=== PATIENT | male | born 1965 | race Caucasian/White ===

== ENCOUNTER 2017-09-28 03:49 | Observation (INO) | payer BC ==
[2017-09-28] MEDS ORDERED: Aspirin 81 MG Tab.Chew PO ONE (03:54)
[2017-09-28] MEDS: Nitroglycerin 0.4 MG Tab.SL SL ONE ×3 (04:00→04:14)
--- NOTE | 2017-09-28 04:07 | EDM.PDOC ---
ED HPI GENERAL MEDICAL PROBLEM - General Chief Complaint: Chest Pain Stated Complaint: CHEST PAIN Time Seen by Provider: 09/28/17 05:02 - History of Present Illness INITIAL COMMENTS - FREE TEXT/NARRATIVE: HISTORY AND PHYSICAL: History of present illness: Patient 52-year-old white male with history of OR in 2014 sensory concern of midsternal chest pain that woke him sleep with shortness of breath he denies diaphoresis or palpitations described as somewhat sharp. This does not feel like his prior OR Review of systems: As per history of present illness and below otherwise all systems reviewed and negative. Past medical history: As per history of present illness and as reviewed below otherwise noncontributory. Surgical history: As per history of present illness and as reviewed below otherwise noncontributory. Social history: No reported history of drug or alcohol abuse. Family history: As per history of present illness and as reviewed below otherwise noncontributory. Physical exam: HEENT: Atraumatic, normocephalic, pupils reactive, negative for conjunctival pallor or scleral icterus, mucous membranes moist, throat clear, neck supple, nontender, trachea midline. Lungs: Clear to auscultation, breath sounds equal bilaterally, chest nontender. Heart: S1S2, regular, negative for clicks, rubs, or JVD. Abdomen: Soft, nondistended, nontender. Negative for masses or hepatosplenomegaly. Negative for costovertebral tenderness. Pelvis: Stable nontender. Genitourinary: Deferred. Rectal: Deferred. Extremities: Atraumatic, negative for cords or calf pain. Neurovascular unremarkable. Neuro: Awake, alert, oriented. Cranial nerves II through XII unremarkable. Cerebellum unremarkable. Motor and sensory unremarkable throughout. Exam nonfocal. Diagnostics: CBC CMP PT/INR troponin d-dimer chest x-ray EKG Therapeutics: IV O2 monitor aspirin 324 mg nitroglycerin Impression: #1 chest pain #2 history of coronary artery disease Definitive disposition and diagnosis as appropriate pending reevaluation and review of above. chest Pain Score (Numeric/FACES): 9 - Related Data Allergies Allergy/AdvReac Type Severity Reaction Status Date / Time No Known Allergies Allergy Verified 09/28/17 03:55 Past Medical History HEENT History: Reports: None Cardiovascular History: Reports: OR Respiratory History: Reports: None Gastrointestinal History: Reports: None Genitourinary History: Reports: None Neurological History: Reports: None Psychiatric History: Reports: None Endocrine/Metabolic History: Reports: None Dermatologic History: Reports: None - Infectious Disease History Infectious Disease History: Reports: Chicken Pox, Mumps - Past Surgical History Musculoskeletal Surgical History: Reports: Shoulder Surgery, Other (See Below) Other Musculoskeletal Surgeries/Procedures:: left arm surgery Social & Family History - Family History Family Medical History: Noncontributory - Tobacco Use Smoking Status *Q: Current Every Day Smoker Years of Tobacco use: 35 Packs/Tins Daily: 1 - Recreational Drug Use Recreational Drug Use: No ED ROS GENERAL - Review of Systems Review Of Systems: ROS reveals no pertinent complaints other than HPI. ED EXAM, GENERAL - Physical Exam Exam: See Below (See dictation) Course - Vital Signs Last Recorded V/S: Last Vital Signs Temp 36.4 C 09/28/17 03:55 Pulse 66 09/28/17 05:00 Resp 18 09/28/17 05:00 BP 103/63 09/28/17 05:00 Pulse Ox 98 09/28/17 03:55 - Orders/Labs/Meds Orders: Active Orders 24 hr Category Date Time Status EKG Documentation Completion [RC] STAT Care 09/28/17 03:54 Active Chest 1V Frontal [CR] Stat Exams 09/28/17 03:54 Taken DRUG SCREEN, URINE [URCHEM] Stat Lab 09/28/17 04:59 Ordered Labs: Laboratory Tests 09/28/17 09/28/17 09/28/17 Range/Units 03:54 03:54 03:54 WBC 9.51 (4.0-11.0) K/uL RBC 3.76 L (4.50-5.90) M/uL Hgb 12.4 L (13.0-17.0) g/dL Hct 35.5 L (38.0-50.0) % MCV 94.4 (80.0-98.0) fL MCH 33.0 H (27.0-32.0) pg MCHC 34.9 (31.0-37.0) g/dL RDW Std Deviation 42.8 (28.0-62.0) fl RDW Coeff of [place] 13 (11.0-15.0) % Plt Count 207 (150-400) K/uL MPV 11.10 (7.40-12.00) fL Neut % (Auto) 65.7 (48.0-80.0) % Lymph % (Auto) 25.0 (16.0-40.0) % [place] % (Auto) 6.3 (0.0-15.0) % Eos % (Auto) 2.4 (0.0-7.0) % Baso % (Auto) 0.6 (0.0-1.5) % Neut # (Auto) 6.2 H (1.4-5.7) K/uL Lymph # (Auto) 2.4 (0.6-2.4) K/uL [place] # (Auto) 0.6 (0.0-0.8) K/uL Eos # (Auto) 0.2 (0.0-0.7) K/uL Baso # (Auto) 0.1 (0.0-0.1) K/uL Nucleated RBC % 0.0 /100WBC Nucleated RBCs # 0 K/uL INR 0.97 D-Dimer, Quantitative (0.0-0.52) mg/LFEU Sodium 136 (136-146) mmol/L Potassium 4.2 (3.5-5.1) mmol/L Chloride 103 (98-110) mmol/L Carbon Dioxide 24 (21-31) mmol/L BUN 31 H (6.0-23.0) mg/dL Creatinine 1.2 (0.6-1.5) mg/dL Est Cr Clr Drug Dosing 72.66 mL/min Estimated GFR (MDRD) > 60.0 ml/min Glucose 97 (60-110) mg/dL Calcium 9.5 (8.8-10.8) mg/dL Total Bilirubin 0.6 (0.1-1.5) mg/dL AST 34 (5-40) IU/L ALT 43 (8-54) IU/L Alkaline Phosphatase 73 (40-150) Troponin I < 0.10 (0.0-0.29) NG/ML Total Protein 7.1 (6.0-8.0) g/dL Albumin 4.5 (3.5-5.0) g/dL Globulin 2.6 (2.0-3.5) g/dL Albumin/Globulin Ratio 1.7 (1.3-2.8) 01/23/18 Range/Units 03:54 WBC (4.0-11.0) K/uL RBC (4.50-5.90) M/uL Hgb (13.0-17.0) g/dL Hct (38.0-50.0) % MCV (80.0-98.0) fL MCH (27.0-32.0) pg MCHC (31.0-37.0) g/dL RDW Std Deviation (28.0-62.0) fl RDW Coeff of [place] (11.0-15.0) % Plt Count (150-400) K/uL MPV (7.40-12.00) fL Neut % (Auto) (48.0-80.0) % Lymph % (Auto) (16.0-40.0) % [place] % (Auto) (0.0-15.0) % Eos % (Auto) (0.0-7.0) % Baso % (Auto) (0.0-1.5) % Neut # (Auto) (1.4-5.7) K/uL Lymph # (Auto) (0.6-2.4) K/uL [place] # (Auto) (0.0-0.8) K/uL Eos # (Auto) (0.0-0.7) K/uL Baso # (Auto) (0.0-0.1) K/uL Nucleated RBC % /100WBC Nucleated RBCs # K/uL INR D-Dimer, Quantitative 0.48 (0.0-0.52) mg/LFEU Sodium (136-146) mmol/L Potassium (3.5-5.1) mmol/L Chloride (98-110) mmol/L Carbon Dioxide (21-31) mmol/L BUN (6.0-23.0) mg/dL Creatinine (0.6-1.5) mg/dL Est Cr Clr Drug Dosing mL/min Estimated GFR (MDRD) ml/min Glucose (60-110) mg/dL Calcium (8.8-10.8) mg/dL Total Bilirubin (0.1-1.5) mg/dL AST (5-40) IU/L ALT (8-54) IU/L Alkaline Phosphatase (40-150) Troponin I (0.0-0.29) NG/ML Total Protein (6.0-8.0) g/dL Albumin (3.5-5.0) g/dL Globulin (2.0-3.5) g/dL Albumin/Globulin Ratio (1.3-2.8) Meds: Medications Discontinued Medications Generic Name Dose Route Start Last Admin Trade Name Freq PRN Reason Stop Dose Admin Aspirin 324 mg 09/28/17 03:54 09/28/17 03:59 Aspirin PO 09/28/17 03:55 324 mg ONETIME ONE Administration Morphine Sulfate 2 mg 09/28/17 04:09 09/28/17 04:22 Morphine IVPUSH 09/28/17 04:10 2 mg ONETIME ONE Administration Nitroglycerin 0.4 mg 09/28/17 03:54 09/28/17 04:14 Nitrostat SL 09/28/17 03:55 0.4 mg ONETIME ONE Administration Ondansetron HCl 4 mg 09/28/17 04:09 09/28/17 04:19 Zofran IVPUSH 09/28/17 04:10 4 mg ONETIME ONE Administration Departure - Departure Time of Disposition: 05:02 Disposition: Refer to Observation Condition: Good Clinical Impression: Chest pain - Discharge Information Forms: ED Department Discharge - My Orders Last 24 Hours: My Active Orders 09/28/17 03:54 EKG Documentation Completion [RC] STAT Chest 1V Frontal [CR] Stat 09/28/17 04:59 DRUG SCREEN, URINE [URCHEM] Stat - Assessment/Plan Last 24 Hours: My Active Orders 09/28/17 03:54 EKG Documentation Completion [RC] STAT Chest 1V Frontal [CR] Stat 09/28/17 04:59 DRUG SCREEN, URINE [URCHEM] Stat
[2017-09-28] MEDS ORDERED: Morphine 2 MG/ML Syringe IVPUSH ONE (04:09)
[2017-09-28] MEDS ORDERED: Ondansetron 4 MG/2 ML SDV IVPUSH ONE (04:09)
[2017-09-28 04:18] LABS: CHLORIDE,CL 103 mmol/L (98-110); SODIUM,NA 136 mmol/L (136-146)
[2017-09-28] MEDS ORDERED: Acetaminophen 325 MG Tab PO PRN (08:12)
[2017-09-28] MEDS ORDERED: Alum Hydrox/Mag Hydrox/Simeth 15 ML, Lidocaine 2% 5 ML PO ONE ×2 (08:48)
--- NOTE | 2017-09-28 08:48 | PCM.HP ---
H&P History of Present Illness - General Date of Service: 09/28/17 Admit Problem/Dx: Admission Diagnosis/Problem Admission Diagnosis/Problem Chest pain Source of Information: Patient History Limitations: Reports: No Limitations - History of Present Illness Initial Comments - Free Text/Narative: This 52 year old male with HTN, CAD, CO with stenting in 2014, and tobacco abuse presented to the ED this morning with concerns of midsternal chest pain that woke him from sleep around 0230 am. He reports he felt a little short of breath but nothing major, he denies radiation of the pain to neck or left arm. He denies N/V. He describes the pain then as sharp in centrally located, like a stabbing feeling. Nothing made it worse or better. He reports this does not feel like his CO pain and pressure. He ate supper last night around 8-830 and then laid down for bed. He does have a history of GERD in which he takes Protonix for daily, but has not been taking it lately. He also has been taking Meloxicam daily for R shoulder pain as well as Tylenol. He continues to smoke at least a pack a day for 40+ years. He has tried quitting, but has had no success. He denies alcohol or recreational drug use. In the ED, BUN 31, Cr 1.2, all other labwork WNL. troponin negative. EKG SR 80s , with no ischemic changes. he was given Nitro SL, ASA and Morphine in the ED. He was admitted for chest pain R/O ACS. chest Pain Score (Numeric/FACES): 1 - Related Data Allergies/Adverse Reactions: Allergies Allergy/AdvReac Type Severity Reaction Status Date / Time No Known Allergies Allergy Verified 09/28/17 03:55 Home Medications: Home Meds Lisinopril 40 mg PO DAILY 09/28/17 [History] Lovastatin 20 mg PO DAILY 09/28/17 [History] Metoprolol Succinate [Toprol XL 100mg] 100 mg PO DAILY 09/28/17 [History] Pantoprazole Sodium [Protonix] 40 mg PO DAILY #30 tablet. 09/28/17 [Rx] Past Medical History HEENT History: Reports: None Cardiovascular History: Reports: CAD, High Cholesterol, Hypertension, CO, Stents. Denies: Afib, Blood Clots/VTE/DVT Other Cardiovascular History: CO 2014, with 2 stents Respiratory History: Reports: None. Denies: Asthma, COPD, PE Gastrointestinal History: Reports: GERD. Denies: GI Bleed Genitourinary History: Reports: None. Denies: Acute Renal Failure, Chronic Renal Insuffiency Musculoskeletal History: Reports: Other (See Below) (injury to R shoulder, takes Meloxicam daily) Neurological History: Reports: None. Denies: CVA, TIA Psychiatric History: Reports: None. Denies: Anxiety, Depression Endocrine/Metabolic History: Reports: None. Denies: Diabetes, Type II, Hypothyroidism Hematologic History: Reports: None Immunologic History: Reports: None Oncologic (Cancer) History: Reports: None Dermatologic History: Reports: None - Infectious Disease History Infectious Disease History: Reports: Chicken Pox, Measles - Past Surgical History Head Surgeries/Procedures: Reports: None Musculoskeletal Surgical History: Reports: Shoulder Surgery, Other (See Below) Other Musculoskeletal Surgeries/Procedures:: left arm surgery Social & Family History - Family History Family Medical History: Noncontributory - Tobacco Use Smoking Status *Q: Current Every Day Smoker Years of Tobacco use: 39 Packs/Tins Daily: 1 Used Tobacco, but Quit: No Second Hand Smoke Exposure: Yes - Caffeine Use Caffeine Use: Reports: Coffee - Alcohol Use Alcohol Use History: No - Recreational Drug Use Recreational Drug Use: No - Living Situation & Occupation Living situation: Reports: Occupation: Employed (Lives in [place] with , 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 Denies: Fever, Chills, Malaise, Weakness HEENT: Reports: Sinus Congestion. Denies: Headaches, Hearing Changes, Sore Throat, Vertigo Pulmonary: Reports: No Symptoms. Denies: Shortness of Breath, Cough, Sputum Cardiovascular: Reports: Chest Pain. Denies: Palpitations, Edema, Lightheadedness Gastrointestinal: Reports: No Symptoms, Flatus. Denies: Abdominal Pain, Black Stool, Bloody Stool, Decreased Appetite, Nausea, Vomiting Genitourinary: Reports: No Symptoms. Denies: Dysuria, Frequency, Burning Musculoskeletal: Reports: No Symptoms. Denies: Neck Pain Neurological: Reports: No Symptoms. Denies: Confusion Hematologic/Lymphatic: Reports: No Symptoms. Denies: Anemia Immunologic: Reports: No Symptoms Exam - Exam Exam: See Below - Vital Signs Vital Signs: Last Vital Signs Temp 97.6 F 09/28/17 06:23 Pulse 64 09/28/17 06:23 Resp 18 09/28/17 06:23 BP 131/97 H 09/28/17 06:23 Pulse Ox 97 09/28/17 06:23 Weight: 77.111 kg - Exam General: Alert, Oriented, Cooperative HEENT: Conjunctiva Clear, Hearing Intact, Mucosa Moist & [place], Nares Patent ( some congestion heard, no sinus pain), Posterior Pharynx Clear, Pupils Reactive Neck: Supple, Trachea Midline, 2 Lungs: Clear to Auscultation, Normal Respiratory Effort, Wheezing (scattered throughout, clears with cough) Cardiovascular: Regular Rate, Regular Rhythm, Normal S1, Normal S2. No: Systolic Murmur Back Exam: Normal Inspection, Full Range of Motion, NT Extremities: Normal Inspection, Normal Range of Motion, Non-Tender, No Pedal Edema, Normal Capillary Refill Neurological: Cranial Nerves Intact Neuro Extensive - Mental Status: Alert, Oriented x3, Normal Mood/Affect, Normal Cognition Neuro Extensive - Motor, Sensory, Reflexes: CN II-XII Intact, Normal Gait, Normal Reflexes Psychiatric: Alert, Normal Affect, Normal Mood - Patient Data Result Diagrams: 09/28/17 03:54 09/28/17 03:54 EKG INTERPRETATION EKG Date: 09/28/17 Rhythm: NSR Rate (Beats/Min): 82 [place]: Normal P-Wave: Present QRS: Normal ST-T: Normal QT: Normal *Q Meaningful Use (ADM) - VTE *Q VTE Criteria *Q: - Stroke *Q Stroke Criteria *Q: - AMI *Q AMI Criteria *Q: - Problem List (1) Chest pain SNOMED Code(s): 68084797 ICD Code: R07.9 - CHEST PAIN, UNSPECIFIED Status: Acute Current Visit: Yes Qualifiers: Chest pain type: unspecified Qualified Code(s): R07.9 - Chest pain, unspecified (2) HTN (hypertension) SNOMED Code(s): 69766043 ICD Code: I10 - ESSENTIAL (PRIMARY) HYPERTENSION Status: Chronic Current Visit: Yes Qualifiers: Hypertension type: essential hypertension Qualified Code(s): I10 - Essential (primary) hypertension (3) CAD (coronary artery disease) SNOMED Code(s): 31621473 ICD Code: I25.10 - ATHSCL HEART DISEASE OF [place] CORONARY ARTERY W/O ANG PCTRS Status: Chronic Current Visit: Yes Qualifiers: Coronary Disease-Associated Artery/Lesion type: [place] artery [place] vs. transplanted heart: [place] heart Associated angina: without angina Qualified Code(s): I25.10 - Atherosclerotic heart disease of [place] coronary artery without angina pectoris (4) Hx of myocardial infarction SNOMED Code(s): 350092154 ICD Code: I25.2 - OLD MYOCARDIAL INFARCTION Status: Chronic Current Visit : Yes (5) Dyslipidemia SNOMED Code(s): 238790644 ICD Code: E78.5 - HYPERLIPIDEMIA, UNSPECIFIED Status: Chronic Current Visit: Yes (6) GERD (gastroesophageal reflux disease) SNOMED Code(s): 035831830 ICD Code: K21.9 - GASTRO-ESOPHAGEAL REFLUX DISEASE WITHOUT ESOPHAGITIS Status: Chronic Current Visit: Yes Qualifiers: Esophagitis presence: esophagitis presence not specified Qualified Code(s) : K21.9 - Gastro-esophageal reflux disease without esophagitis Problem List Initiated/Reviewed/Updated: Yes Orders Last 24hrs: Active Orders 24 hr Category Date Time Status Intake and Output [RC] QSHIFT Care 09/28/17 08:13 Ordered Oxygen Therapy [RC] PRN Care 09/28/17 08:13 Ordered Telemetry Monitoring [Cardiac Monitoring] [RC] . Care 09/28/17 08:15 Ordered DIRECTED Up ad Alexandra [RC] ASDIRECTED Care 09/28/17 08:12 Ordered VTE/DVT Education [RC] PER UNIT ROUTINE Care 09/28/17 08:13 Ordered Vital Signs [RC] Q4H Care 09/28/17 08:13 Ordered Heart Healthy Diet [DIET] Diet 09/28/17 Breakfast Active GLYCOSYLATED HEMOGLOBIN,HGBA1C [CHEM] Routine Lab 09/28/17 08:10 Ordered TROPONIN I [CHEM] Q6H Lab 09/28/17 09:54 Ordered TROPONIN I [CHEM] Q6H Lab 09/28/17 15:54 Ordered Acetaminophen [Tylenol] Med 09/28/17 08:12 Ordered 650 mg PO Q4H PRN Enoxaparin [Lovenox] Med 09/28/17 09:00 Ordered 40 mg SUBCUT DAILY Resuscitation Status Routine Resus Stat 09/28/17 08:12 Ordered Medication Orders Acetaminophen (Tylenol) 650 mg PO Q4H PRN PRN Reason: Pain (Mild 1-3) Enoxaparin Sodium (Lovenox) 40 mg SUBCUT DAILY [facility] Assessment/Plan Comment:: This 52 year old male admitted with chest pain R/O ACS 1. Chest pain: due to CAD and previous CO, monitor on telemetry, trend troponins. Will check Lipid and A1c. Lipid panel reveals LDL 125 and HDL 40, Triglycerides 206 and total chol 206. A1c 6.0. Did give patient GI cocktail and protonix this morning, dull pain continued. after this regimen, no further pain complaints. 2. HTN: Continue home medications of Metoprolol and Lisinopril 3. CAD: Continue ASA. 4. GERD: Continue Protonix VTE prophylaxis: Lovenox Discharge Plan: Patient very eager to be discharged this afternoon. Troponins all negative. He was encouraged to follow up with his Cloth Designer regarding stress test as outpatient. Due to him being here in [place], he was offered to have appointments arranged with out providers here, he declines and would like to arrange follow up with his own provider, Dr Ford, in [place]. he was also encouraged no strenuous activity until he had a stress test and he reported he will limit himself but is going to continue working on the [employer]. He was educated on the dangers of this, especially if he has further blockage that needs attention. he continues to verbalize understanding but he was going to still work. He was educated to monitor his diet due to cholesterol levels and A1c, which is 6.0. He will be discharged home today. Chest pain maybe due to GERD but due to history we continue to recommend follow up with outpatient stress test. He is to return to ED or clinic if concerns should arise.
[2017-09-28] MEDS ORDERED: Metoprolol Succinate 100 MG Tab.ER PO SCH (09:00)
[2017-09-28] MEDS ORDERED: Pantoprazole 40 MG Vial IVPUSH SCH (09:00)
[2017-09-28] MEDS ORDERED: Lisinopril 10 MG Tab PO SCH (09:00)
[2017-09-28] MEDS ORDERED: Enoxaparin 40 MG/0.4 ML Syringe SUBCUT SCH (09:00)
--- NOTE | 2017-09-28 15:47 | CR ---
EXAM DATE: 09/28/17 PATIENT'S AGE: 52 Patient: LENORE DILLARD Facility: [place], [place] Site . Site : [id number] Study: XRay Chest [id number]/23/2018 4:16:28 AM Ordering Physician: Doctor Holman Final Report: INDICATION: Chest pain for 1 hour TECHNIQUE: Chest radiograph 1 view COMPARISON: 05/02/2011 FINDINGS: Mediastinum: The heart silhouette is normal in size and morphology. The mediastinum is normal in appearance. Lungs: Both lungs are unremarkable in appearance. No sign of pleural effusion seen. No pneumothorax is identified. Bones and soft tissue: Unremarkable for age. IMPRESSION: 1. No acute cardiopulmonary disease is seen. Dictated by: Kenn Singleton MD @ 09/28/2017 04:17:48 (Electronic Signature) Report Signed by Proxy. FREDERICK
== END 2017-09-28 17:45 | disposition home or self-care (01) ==
LOC: MW.ED 03:49 → MW.MS 05:04
PROVIDERS: ADMIT Internal Medicine; ATTEND Internal Medicine
DX: R07.9 Chest pain, unspecified (principal); I10 Essential (primary) hypertension; I25.10 Atherosclerotic heart disease of native coronary artery without angina pectoris; I25.2 Old myocardial infarction; K21.9 Gastro-esophageal reflux disease without esophagitis; F17.210 Nicotine dependence, cigarettes, uncomplicated; Z79.899 Other long term (current) drug therapy; E78.00 Pure hypercholesterolemia, unspecified; Z95.5 Presence of coronary angioplasty implant and graft
CPT/HCPCS: 36415; 71045; 80053; 80061; 80305; 83036; 84484; 85025; 85379; 85610; 93005; 96374; 96375; 99285; A9270; C9113; J1650; J2270; J2405; 96372; G0378

== ENCOUNTER 2017-10-30 17:31 | Emergency (ER) | payer BC ==
[2017-10-30] MEDS ORDERED: Sodium Chloride 0.9% 10 ML Syringe FLUSH PRN (18:03)
[2017-10-30] MEDS ORDERED: Sodium Chloride 0.9% 2.5 ML Syringe FLUSH PRN (18:03)
--- NOTE | 2017-10-30 18:03 | EDM.PDOC ---
ED HPI GENERAL MEDICAL PROBLEM - General Chief Complaint: Abdominal Pain Stated Complaint: CRAMPS Time Seen by Provider: 10/30/17 17:57 Source of Information: Reports: Patient History Limitations: Reports: No Limitations - History of Present Illness INITIAL COMMENTS - FREE TEXT/NARRATIVE: HISTORY AND PHYSICAL: [] 52-year-old male presenting with lower abdominal pain History of Present Illness: []Patient states that he has not had a bowel movement in more than a week Lives in [facility] just arrived back here to work Review of Systems: As per history of present illness and below otherwise all systems reviewed and negative. Past medical history: As per history of present illness and as reviewed below otherwise noncontributory. Surgical history: As per history of present illness and as reviewed below otherwise noncontributory. Social history: No reported history of drug or alcohol abuse. Family history: As per history of present illness and as reviewed below otherwise noncontributory. Physical exam: Alert and oriented gentleman answering questions appropriately denies any chest pain shortness breath palpitations denies any gastrointestinal other than described. Patient states that he hasn't eaten today. HEENT: Atraumatic, normocehpalic, pupils reactive, negative for conjunctival pallor or scleral icterus, mucous membranes moist, throat clear, neck supple, nontender, trachea midline. Lungs: Clear to auscultation, breath sounds equal bilaterally, chest non tender. Heart: S1S2, regular, negative for clicks, rubs, or JVD. Abdomen: Soft, nondistended, tender to light palpation no rebound and no guarding. Negative for masses or hepatossplenmegaly. Negative for costovertebral tenderness. Pelvis: Stable nontender. Genitourinary: Deferred. Rectal: Deferred Extremities: Atraumatic, negative for cords or calf pain. Neurovascular unremarkable. Neuro: Awake, alert, oriented. Cranial nerves II through XII unremarkable. Cerebellum unremarkable. Motor and sensory unremarkable throughout. Exam nonfocal. Discussed the results Diagnostics: [Abdomen pelvis Therapeutics: [IV normal saline] Reglan IV Impression: []Colicky bowel pain Plan: []Discharged to home Clear liquids Dulcolax suppository Off work note has been written Definitive disposition and diagnosis as appropriate pending reevaluation and review of above. Onset: Gradual Duration: Day(s):, Getting Worse Location: Reports: Abdomen Quality: Reports: Stabbing Severity: Moderate Improves with: Reports: None Worsens with: Reports: None abodminal Pain Score (Numeric/FACES): 7 - Related Data Allergies Allergy/AdvReac Type Severity Reaction Status Date / Time No Known Allergies Allergy Verified 10/30/17 17:48 Home Meds: Home Meds Lisinopril 40 mg PO DAILY 09/28/17 [History] Pantoprazole Sodium [Protonix] 40 mg PO DAILY #30 tablet. 09/28/17 [Rx] Aspirin 81 mg PO DAILY 10/30/17 [History] Meloxicam 15 mg PO DAILY 10/30/17 [History] Past Medical History HEENT History: Reports: None Cardiovascular History: Reports: CAD, High Cholesterol, Hypertension, MO, Stents Other Cardiovascular History: MO 2014, with 2 stents Respiratory History: Reports: None Gastrointestinal History: Reports: GERD, Other (See Below) Other Gastrointestinal History: Diverticulitis Genitourinary History: Reports: None Musculoskeletal History: Reports: Other (See Below) Neurological History: Reports: None Psychiatric History: Reports: None Endocrine/Metabolic History: Reports: None Hematologic History: Reports: None Immunologic History: Reports: None Oncologic (Cancer) History: Reports: None Dermatologic History: Reports: None - Infectious Disease History Infectious Disease History: Reports: Chicken Pox, Measles - Past Surgical History Head Surgeries/Procedures: Reports: None Musculoskeletal Surgical History: Reports: Shoulder Surgery, Other (See Below) Other Musculoskeletal Surgeries/Procedures:: left arm surgery, left leg Social & Family History - Family History Family Medical History: Noncontributory - Tobacco Use Smoking Status *Q: Current Every Day Smoker Years of Tobacco use: 40 Packs/Tins Daily: 1 Used Tobacco, but Quit: No Second Hand Smoke Exposure: Yes - Caffeine Use Caffeine Use: Reports: Soda, Tea - Recreational Drug Use Recreational Drug Use: No - Living Situation & Occupation Living situation: Reports: Occupation: Employed (Lives in [place] with , 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 ED EXAM, GI/ABD - Physical Exam Exam: See Below (See dictation) Course - Vital Signs Last Recorded V/S: Last Vital Signs Temp 36.9 C 10/30/17 17:45 Pulse 76 10/30/17 17:45 Resp 18 10/30/17 17:45 BP 145/107 H 10/30/17 17:45 Pulse Ox 97 10/30/17 17:45 - Orders/Labs/Meds Orders: Active Orders 24 hr Category Date Time Status Abdomen 2V AP Flat Upright [CR] Stat Exams 10/30/17 18:03 Taken UA W/MICROSCOPIC [URIN] Stat Lab 10/30/17 18:45 Ordered Metoclopramide [Reglan] Med 10/30/17 19:20 Once 10 mg IV ONETIME ONE Sodium Chloride 0.9% [Normal Saline] 500 ml Med 10/30/17 18:15 Active IV STAT Sodium Chloride 0.9% [Saline Flush] Med 10/30/17 18:03 Active 10 ml FLUSH ASDIRECTED PRN Sodium Chloride 0.9% [Saline Flush] Med 10/30/17 18:03 Active 2.5 ml FLUSH ASDIRECTED PRN Saline Lock Insert [OM.PC] Stat Oth 10/30/17 18:03 Ordered Medication Orders Sodium Chloride (Normal Saline) 500 mls @ 999 mls/hr IV STAT PANCHO Last Admin: 10/30/17 18:19 Dose: 999 mls/hr Sodium Chloride (Saline Flush) 10 ml FLUSH ASDIRECTED PRN PRN Reason: Keep Vein Open Sodium Chloride (Saline Flush) 2.5 ml FLUSH ASDIRECTED PRN PRN Reason: Keep Vein Open Labs: Laboratory Tests 10/30/17 10/30/17 Range/Units 18:10 18:10 WBC 13.29 H (4.0-11.0) K/uL RBC 3.80 L (4.50-5.90) M/uL Hgb 12.3 L (13.0-17.0) g/dL Hct 36.2 L (38.0-50.0) % MCV 95.3 (80.0-98.0) fL MCH 32.4 H (27.0-32.0) pg MCHC 34.0 (31.0-37.0) g/dL RDW Std Deviation 43.2 (28.0-62.0) fl RDW Coeff of Grant 12 (11.0-15.0) % Plt Count 215 (150-400) K/uL MPV 10.60 (7.40-12.00) fL Neut % (Auto) 79.8 (48.0-80.0) % Lymph % (Auto) 11.7 L (16.0-40.0) % [place] % (Auto) 7.9 (0.0-15.0) % Eos % (Auto) 0.4 (0.0-7.0) % Baso % (Auto) 0.2 (0.0-1.5) % Neut # (Auto) 10.6 H (1.4-5.7) K/uL Lymph # (Auto) 1.6 (0.6-2.4) K/uL Lincoln # (Auto) 1.1 H (0.0-0.8) K/uL Eos # (Auto) 0.1 (0.0-0.7) K/uL Baso # (Auto) 0.0 (0.0-0.1) K/uL Nucleated RBC % 0.0 /100WBC Nucleated RBCs # 0 K/uL Sodium 137 (136-146) mmol/L Potassium 3.5 (3.5-5.1) mmol/L Chloride 101 (98-110) mmol/L Carbon Dioxide 24 (21-31) mmol/L BUN 12 (6.0-23.0) mg/dL Creatinine 0.8 (0.6-1.5) mg/dL Est Cr Clr Drug Dosing 108.99 mL/min Estimated GFR (MDRD) > 60.0 ml/min Glucose 102 (60-110) mg/dL Calcium 9.6 (8.8-10.8) mg/dL Total Bilirubin 1.0 (0.1-1.5) mg/dL AST 17 (5-40) IU/L ALT 18 (8-54) IU/L Alkaline Phosphatase 106 (40-150) Total Protein 7.3 (6.0-8.0) g/dL Albumin 4.1 (3.5-5.0) g/dL Globulin 3.2 (2.0-3.5) g/dL Albumin/Globulin Ratio 1.3 (1.3-2.8) Meds: Medications Generic Name Dose Route Start Last Admin Trade Name Freq PRN Reason Stop Dose Admin Sodium Chloride 500 mls @ 999 mls/hr 10/30/17 18:15 02/24/18 18:19 Normal Saline IV 999 mls/hr STAT PANCHO Administration Sodium Chloride 10 ml 10/30/17 18:03 Saline Flush FLUSH ASDIRECTED PRN Keep Vein Open Sodium Chloride 2.5 ml 10/30/17 18:03 Saline Flush FLUSH ASDIRECTED PRN Keep Vein Open Departure - Departure Time of Disposition: 19:22 Disposition: Home, Self-Care 01 Condition: Good Clinical Impression: Abdominal pain Qualifiers: Abdominal location: lower abdomen, unspecified Qualified Code(s): R10.30 - Lower abdominal pain, unspecified - Discharge Information Instructions: Abdominal Pain, Adult, [id number] Referrals: PCP,None [Primary Care Provider] - Forms: ED Department Discharge Additional Instructions: The following information is given to patients seen in the emergency department who are being discharged to home. This information is to outline your options for follow-up care. We provide all patients seen in our emergency department with a follow-up referral. The need for follow-up, as well as the timing and circumstances, are variable depending upon the specifics of your emergency department visit. If you don't have a primary care physician on staff, we will provide you with a referral. We always advise you to contact your personal physician following an emergency department visit to inform them of the circumstance of the visit and for follow-up with them and/or the need for any referrals to a consulting specialist. The emergency department will also refer you to a specialist when appropriate. This referral assures that you have the opportunity for followup care with a specialist. All of these measure are taken in an effort to provide you with optimal care, which includes your followup. Under all circumstances we always encourage you to contact your private physician who remains a resource for coordinating your care. When calling for followup care, please make the office aware that this follow-up is from your recent emergency room visit. If for any reason you are refused follow-up, please contact the [facility] emergency department at and asked to speak to the emergency department charge nurse. Event #have colicky type bowel pain Clear liquids 24 hours Worsening of the symptoms only to return for further evaluation Reglan will be given to you in the ER for your abdominal pain Note for work has been written - My Orders Last 24 Hours: My Active Orders 10/30/17 18:03 Abdomen 2V AP Flat Upright [CR] Stat Sodium Chloride 0.9% [Saline Flush] 10 ml FLUSH ASDIRECTED PRN Sodium Chloride 0.9% [Saline Flush] 2.5 ml FLUSH ASDIRECTED PRN Saline Lock Insert [OM.PC] Stat 10/30/17 18:15 Sodium Chloride 0.9% [Normal Saline] 500 ml IV STAT 10/30/17 18:45 UA W/MICROSCOPIC [URIN] Stat 10/30/17 19:20 Metoclopramide [Reglan] 10 mg IV ONETIME ONE - Assessment/Plan Last 24 Hours: My Active Orders 10/30/17 18:03 Abdomen 2V AP Flat Upright [CR] Stat Sodium Chloride 0.9% [Saline Flush] 10 ml FLUSH ASDIRECTED PRN Sodium Chloride 0.9% [Saline Flush] 2.5 ml FLUSH ASDIRECTED PRN Saline Lock Insert [OM.PC] Stat 10/30/17 18:15 Sodium Chloride 0.9% [Normal Saline] 500 ml IV STAT 10/30/17 18:45 UA W/MICROSCOPIC [URIN] Stat 10/30/17 19:20 Metoclopramide [Reglan] 10 mg IV ONETIME ONE
[2017-10-30] MEDS ORDERED: Sodium Chloride 0.9% 500 ML IV SCH ×3 (18:15→19:45)
[2017-10-30 18:33] LABS: CHLORIDE,CL 101 mmol/L (98-110); SODIUM,NA 137 mmol/L (136-146)
[2017-10-30] MEDS ORDERED: Metoclopramide 10 MG/2 ML SDV IV ONE (19:20)
[2017-10-30] MEDS ORDERED: Ketorolac 30 MG/ML SDV IVPUSH ONE (19:48)
--- NOTE | 2017-11-01 09:55 | CR ---
EXAM DATE: 10/30/17 PATIENT'S AGE: 52 Patient: LENORE DILLARD Facility: [place], [place] Site . Site : [id number] Study: XRay Abdomen [id number]/24/2018 6:55:24 PM Ordering Physician: Doctor Holman Final Report: INDICATION: Abdominal pain with cramping for 3 days. No bowel movement for 1 week. Diarrhea today. TECHNIQUE: Three views flat upright abdomen and pelvis. FINDINGS: Mild gas distention stomach, small bowel and colon falls within normal limits. Few nonspecific air-fluid levels within the bowel loops. No free intraperitoneal air. Mild to moderate vascular calcifications. Remainder negative. Dictated by Leon Fajardo MD @ Oct 30 2017 7:05PM (Electronic Signature) Report Signed by Proxy. FREDERICK
== END 2017-10-30 20:43 | disposition home or self-care (01) ==
LOC: MW.ED 17:31
DX: R10.30 Lower abdominal pain, unspecified (principal); R10.84 Generalized abdominal pain; I10 Essential (primary) hypertension; I25.10 Atherosclerotic heart disease of native coronary artery without angina pectoris; E78.00 Pure hypercholesterolemia, unspecified; K21.9 Gastro-esophageal reflux disease without esophagitis; F17.210 Nicotine dependence, cigarettes, uncomplicated; Z79.82 Long term (current) use of aspirin; Z79.899 Other long term (current) drug therapy
CPT/HCPCS: 36415; 74019; 80053; 81001; 85025; 96361; 96374; 96375; 99284; J1885; J2765; J7040; 99283